=== PATIENT | male | born 1970 | race Hispanic/Latino ===

== ENCOUNTER 2021-02-14 01:48 | Emergency (ER) | payer OTHER ==
[~2021-02-14] VITALS: Ht 167.6 cm; Wt 122.5 kg
[2021-02-14] MEDS ORDERED: AMOXICILLIN/CLAVULANATE K 875 MG TAB PO STA (01:54)
[2021-02-14] MEDS ORDERED: AUGMENTIN 875-1 EACH PO (01:56)
[2021-02-14] MEDS ORDERED: IBUPROFEN600 MG PO (01:56)
[2021-02-14] MEDS ORDERED: KETOROLAC TROMETHAMINE 60 MG/2 ML VIAL IM ONE (02:00)
== END 2021-02-14 02:09 | disposition home or self-care (01) ==
LOC: ER 01:56
DX: K04.7 Periapical abscess without sinus (principal); K02.9 Dental caries, unspecified; Z98.84 Bariatric surgery status
CPT/HCPCS: 99283; J1885

== ENCOUNTER 2023-10-18 14:37 | Emergency (ER) | payer MEDICARE, OTHER ==
[~2023-10-18] VITALS: Ht 165.1 cm; Wt 81.6 kg
[~2023-10-18 14:37] MED LIST: AUGMENTIN 875-1 EACH PO; IBUPROFEN600 MG PO
[2023-10-18 14:56] VITALS: TEMP 97.5
[2023-10-18] MEDS: TETANUS/DIPHTHERIA TOX ADULT 0.5 ML SYR IM ONE (16:39)
[2023-10-18] MEDS ORDERED: LIDOCAINE HCL 1% LOCAL INJ 20 ML VIAL ONE (17:06)
[2023-10-18 17:30] VITALS: PULSE 71; RESP 16
[2023-10-18] MEDS ORDERED: CEPHALEXIN500 MG PO (17:35)
[2023-10-18] MEDS: LIDOCAINE HCL 1% LOCAL INJ 20 ML VIAL INJ ONE (17:57)
[2023-10-18 17:58] VITALS: BP 124/76; PULSE 71; RESP 16; O2SAT 96
== END 2023-10-18 17:58 | disposition home or self-care (01) ==
LOC: ER 14:54
DX: S01.01XA Laceration without foreign body of scalp, initial encounter (principal); W01.0XXA Fall on same level from slipping, tripping and stumbling without subsequent striking against object, initial encounter; Y93.01 Activity, walking, marching and hiking; Y92.89 Other specified places as the place of occurrence of the external cause; E11.9 Type 2 diabetes mellitus without complications; E78.5 Hyperlipidemia, unspecified; K21.9 Gastro-esophageal reflux disease without esophagitis; F32.A Depression, unspecified; Z98.84 Bariatric surgery status
CPT/HCPCS: 12004; 70450; 72125; 90471; 90714; 96372; 99284; J2001

== ENCOUNTER 2023-10-27 09:12 | Emergency (ER) | payer MEDICARE ==
[~2023-10-27] VITALS: Ht 165.1 cm; Wt 81.6 kg
[~2023-10-27 09:12] MED LIST changes: +CEPHALEXIN500 MG PO
[2023-10-27 09:24] VITALS: PULSE 69; RESP 16; TEMP 98; O2SAT 100
== END 2023-10-27 10:30 | disposition home or self-care (01) ==
LOC: ER 10:12
DX: Z48.02 Encounter for removal of sutures (principal)
CPT/HCPCS: 99282

== ENCOUNTER 2024-06-04 08:01 | Inpatient (IN) | payer MEDICARE ==
[~2024-06-04] VITALS: Ht 165.1 cm; Wt 88.9 kg
[2024-06-04] VITALS (28 sets, daily range): BP systolic 94–133; BP diastolic 53–79; PULSE 81–105; RESP 15–25; TEMP 97–98; O2SAT 91–99
[2024-06-04] MEDS: SODIUM CHLORIDE 0.9% 1000ML 1,000 ML IV ONE ×2 (08:27→11:59)
[2024-06-04] MEDS: ONDANSETRON HCL INJ 2MG/ML 2ML 2 MG/ML VIAL IV STA (08:27)
[2024-06-04 08:38] LABS: BASOPHILS # (AUTO) 0.1 (0.0-0.1); BASOPHILS % 0.2 % (0.0-1.0); HEMATOCRIT 33.9 % (38.2-49.6); LYMPHOCYTES # (AUTO) 0.6 (1.0-3.2); LYMPHOCYTES % 1.6 % (18.0-39.1); MEAN CORPUSCULAR HEMOGLOBIN 20.4 pg (28-32); MEAN CORPUSCULAR HGB CONC 29.5 g/dL (31-35); MONOCYTES # (AUTO) 2.3 (0.2-0.8); NEUTROPHILS # (AUTO) 32.1 (2.1-6.9); NEUTROPHILS % 83.1 % (38.7-80.0); PLATELET COUNT 216 x10e3/uL (140-360); RED BLOOD COUNT 4.91 x10e6/uL (4.3-5.7); RED CELL DISTRIBUTION WIDTH 20.2 % (11.7-14.4); WHITE BLOOD COUNT 38.63 x10e3/uL (4.8-10.8)
[2024-06-04 09:00] LABS: BAND NEUTROPHILS % (MANUAL) 3 %; LYMPHOCYTES % (MANUAL) 2 % (19-48); MONOCYTES % (MANUAL) 2 % (3.4-9.0); NEUTROPHILS % (MANUAL) 93 % (40-74)
[2024-06-04 09:01] LABS: ALBUMIN/GLOBULIN RATIO 0.7 (0.8-2.0); ANION GAP 26.2 mmol/L (8-16); ANISOCYTOSIS MODERATE; BILIRUBIN,TOTAL 1.6 mg/dL (0.2-1.2); CALCIUM 9.6 mg/dL (8.4-10.2); CREATININE, SERUM 5.39 mg/dL (0.72-1.25); PLATELET ESTIMATE ADEQUATE; PLATELET MORPHOLOGY COMMENT NORMAL; POTASSIUM 3.2 mmol/L (3.5-5.1); TOTAL PROTEIN 7.1 g/dL (6.5-8.1)
[2024-06-04 09:04] LABS: HYPOCHROMASIA SLIGHT; MICROCYTOSIS MODERATE; RBC MORPHOLOGY COMMENT ABNORMAL
[2024-06-04] MEDS: SODIUM CHLORIDE 0.9% IV SCH (09:53)
[2024-06-04] MEDS: FENTANYL CITRATE/PF 100MCG/2 ML INJ IV ONE (10:11)
[2024-06-04] MEDS ORDERED: FENTANYL CITRATE/PF 100MCG/2 ML INJ IV PRN (11:45)
[2024-06-04] MEDS ORDERED: ONDANSETRON HCL INJ 2MG/ML 2ML 2 MG/ML VIAL IV PRN (11:45)
[2024-06-04] MEDS: SODIUM CHLORIDE 0.9% 1000ML 1,000 ML IV SCH ×2 (11:57→16:53)
[2024-06-04 12:00] LABS: INR 1.45; PROTHROMBIN TIME 18.4 seconds (11.9-14.5)
[2024-06-04 12:01] LABS: PARTIAL THROMBOPLASTIN TIME 44.8 seconds (23.8-35.5)
[2024-06-04] MEDS ORDERED: ROCURONIUM BROMIDE 1 ML IV ONE (12:12)
[2024-06-04] MEDS ORDERED: ACETAMINOPHEN 1000 MG/100 ML 100 ML IV ONE (12:12)
[2024-06-04] MEDS ORDERED: SEVOFLURANE INHAL SOLN 250 ML PEN BTL ONE (12:12)
[2024-06-04] MEDS ORDERED: FENTANYL CITRATE/PF 100MCG/2 ML INJ ONE (12:12)
[2024-06-04] MEDS ORDERED: PROPOFOL IV EMULSION 10 MG/ML 20 ML VIAL ONE (12:12)
[2024-06-04] MEDS ORDERED: LIDOCAINE HCL 2% LOCAL INJ 5 ML SDV VIAL INJ ONE (12:12)
[2024-06-04] MEDS ORDERED: DEXAMETHASONE SOD PHOS INJ 4 MG/ML SDV ONE (13:36)
[2024-06-04] MEDS ORDERED: ONDANSETRON HCL INJ 2MG/ML 2ML 2 MG/ML VIAL ONE (13:36)
[2024-06-04] MEDS ORDERED: SODIUM CHLORIDE 0.9% 100 ML ONE (13:39)
[2024-06-04] MEDS ORDERED: PHENYLEPHRINE HCL 1% 10 MG/ML VIAL ONE (13:39)
[2024-06-04] MEDS ORDERED: SUGAMMADEX SODIUM 200 MG/2 ML VIAL IV ONE (13:50)
[2024-06-04] MEDS: FENTANYL CITRATE/PF 100MCG/2 ML INJ ONE (15:50)
[2024-06-04] MEDS ORDERED: FUROSEMIDE40 MG PO (17:46)
[2024-06-04] MEDS ORDERED: LANSOPRAZOLE30 MG PO (17:46)
[2024-06-04] MEDS ORDERED: MEMANTINE HCL5 MG PO (17:46)
[2024-06-04] MEDS ORDERED: METFORMIN HCL500 M1 PO (17:46)
[2024-06-04] MEDS ORDERED: FLOMAX0.4 MG PO (17:49)
[2024-06-04] MEDS ORDERED: ROSUVASTATIN CA40 MG PO (17:51)
[2024-06-04] MEDS: INSULIN REGULAR, HUMAN 100 UNIT/1 ML SQ SCH (18:00)
[2024-06-04] MEDS: METRONIDAZOLE 500MG/NS 100ML 100 ML IV SCH (18:04)
[2024-06-04] MEDS: ACETAMINOPHEN 1000 MG/100 ML IV PRN (18:05)
[2024-06-04] MEDS: LACTATED RINGER'S 500 ML IV ONE (19:53)
[2024-06-04] MEDS ORDERED: POTASSIUM CHLO10 ME1 PO (20:37)
[2024-06-04] MEDS ORDERED: SERTRALINE HCL100 MG PO (20:39)
[2024-06-04] MEDS: HYDROMORPHONE 1MG/1ML INJ IV PRN (21:55)
[2024-06-05] VITALS (39 sets, daily range): BP systolic 98–128; BP diastolic 67–77; PULSE 69–98; RESP 13–22; TEMP 96.8–97.8; O2SAT 91–100
[2024-06-05 07:02] LABS: BASOPHILS % 0.1 % (0.0-1.0); HEMATOCRIT 29.4 % (38.2-49.6); LYMPHOCYTES # (AUTO) 0.3 (1.0-3.2); LYMPHOCYTES % 1.4 % (18.0-39.1); MEAN CORPUSCULAR HGB CONC 27.2 g/dL (31-35); MEAN CORPUSCULAR VOLUME 73.5 fL (81-99); MONOCYTES # (AUTO) 0.9 (0.2-0.8); NEUTROPHILS # (AUTO) 21.1 (2.1-6.9); NEUTROPHILS % 90.2 % (38.7-80.0); PLATELET COUNT 197 x10e3/uL (140-360); RED CELL DISTRIBUTION WIDTH 20.3 % (11.7-14.4); WHITE BLOOD COUNT 23.42 x10e3/uL (4.8-10.8)
[2024-06-05 07:27] LABS: ALBUMIN 2.2 g/dL (3.5-5.0); ALBUMIN/GLOBULIN RATIO 0.6 (0.8-2.0); ANION GAP 19.9 mmol/L (8-16); BILIRUBIN,TOTAL 0.9 mg/dL (0.2-1.2); CALCIUM 7.2 mg/dL (8.4-10.2); CREATININE, SERUM 5.07 mg/dL (0.72-1.25); POTASSIUM 3.9 mmol/L (3.5-5.1); TOTAL PROTEIN 5.8 g/dL (6.5-8.1)
[2024-06-05] MEDS: SODIUM BICARBONATE 8.4% VIAL 150 ML in DEXTROSE 5% 1,000 ML IV SCH (08:01)
[2024-06-05] MEDS: MUPIROCIN 2% OINT 22 GM TUBE TOP SCH (08:43)
[2024-06-05] MEDS: TAMSULOSIN HCL 0.4 MG CAP PO SCH (08:43)
[2024-06-05] MEDS ORDERED: INSULIN REGULAR, HUMAN 100 UNIT/1 ML SQ SCH (11:30)
[2024-06-05] MEDS ORDERED: ALBUMIN 25% 12.5GM 0.25 GM/ML BTL IV SCH (11:45)
[2024-06-05 11:59] LABS: ANISOCYTOSIS MODERATE; LYMPHOCYTES % (MANUAL) 1 % (19-48); MONOCYTES % (MANUAL) 3 % (3.4-9.0); NEUTROPHILS % (MANUAL) 96 % (40-74); PLATELET ESTIMATE ADEQUATE; PLATELET MORPHOLOGY COMMENT NORMAL; RBC MORPHOLOGY COMMENT ABNORMAL
[2024-06-05 12:00] LABS: HYPOCHROMASIA MODERATE; OVALOCYTES FEW
[2024-06-05 12:02] LABS: ELLIPTOCYTE, RBC SLIGHT; MICROCYTOSIS MODERATE
[2024-06-05] MEDS: ALBUMIN 25% 12.5GM 50ML 50 ML IV SCH (12:43)
[2024-06-05] MEDS: CALCIUM GLUC 1 G/50 ML NACL 50 ML IV SCH (12:43)
[2024-06-05] MEDS: CRESTOR 10MG PO SCH (16:07)
[2024-06-05 18:28] LABS: BILIRUBIN,URINE NEGATIVE (NEGATIVE); CLARITY,URINE SL CLOUDY (CLEAR); COLOR,URINE AMBER (YELLOW); GLUCOSE, URINE NEGATIVE (NEGATIVE); KETONES,URINE NEGATIVE (NEGATIVE); LEUKOCYTE ESTERASE ,URINE SMALL (NEGATIVE); NITRITE,URINE NEGATIVE (NEGATIVE); PH,URINE 5.5 (5 - 7); PROTEIN,URINE DIPSTICK >=300 (NEGATIVE); URINE UROBILINOGEN 0.2 mg/dL (0.2 - 1)
[2024-06-05 18:45] LABS: AMORPHOUS SEDIMENT,URINE MODERATE; BACTERIA,URINE FEW /HPF
[2024-06-05 18:53] LABS: CREATININE,URINE RANDOM 54.11 mg/dL (63-166)
[2024-06-05] MEDS: HYDROMORPHONE 1MG/1ML INJ IV PRN (23:44)
[2024-06-06] VITALS (37 sets, daily range): BP systolic 91–132; BP diastolic 56–84; PULSE 73–86; RESP 12–23; TEMP 97–97.7; O2SAT 81–100
[2024-06-06 06:57] LABS: BASOPHILS % 0.1 % (0.0-1.0); HEMATOCRIT 27.3 % (38.2-49.6); HEMOGLOBIN 7.5 g/dL (14.0-18.0); LYMPHOCYTES # (AUTO) 0.3 (1.0-3.2); LYMPHOCYTES % 1.5 % (18.0-39.1); MEAN CORPUSCULAR HEMOGLOBIN 19.9 pg (28-32); MEAN CORPUSCULAR HGB CONC 27.5 g/dL (31-35); MEAN CORPUSCULAR VOLUME 72.6 fL (81-99); MONOCYTES # (AUTO) 0.9 (0.2-0.8); MONOCYTES % 5.1 % (4.4-11.3); NEUTROPHILS # (AUTO) 15.7 (2.1-6.9); PLATELET COUNT 144 x10e3/uL (140-360); RED BLOOD COUNT 3.76 x10e6/uL (4.3-5.7); RED CELL DISTRIBUTION WIDTH 20.3 % (11.7-14.4); WHITE BLOOD COUNT 17.08 x10e3/uL (4.8-10.8)
[2024-06-06 07:32] LABS: ALBUMIN 2.7 g/dL (3.5-5.0); ALBUMIN/GLOBULIN RATIO 0.8 (0.8-2.0); ANION GAP 21.8 mmol/L (8-16); BILIRUBIN,TOTAL 0.8 mg/dL (0.2-1.2); CALCIUM 7.2 mg/dL (8.4-10.2); CREATININE, SERUM 5.79 mg/dL (0.72-1.25); POTASSIUM 3.8 mmol/L (3.5-5.1); TOTAL PROTEIN 6.1 g/dL (6.5-8.1)
[2024-06-06 07:43] LABS: MAGNESIUM 2.2 MG/DL (1.3-2.1); PHOSPHORUS 6.1 MG/DL (2.3-4.7)
[2024-06-06] MEDS: FUROSEMIDE INJ 10 MG/ML 4 ML VIAL IV ONE (08:03)
[2024-06-06] MEDS: SERTRALINE HCL 100 MG TAB PO SCH (08:03)
[2024-06-06 09:40] LABS: LYMPHOCYTES % (MANUAL) 2 % (19-48); MONOCYTES % (MANUAL) 5 % (3.4-9.0); NEUTROPHILS % (MANUAL) 93 % (40-74)
[2024-06-06 09:41] LABS: PLATELET ESTIMATE ADEQUATE; PLATELET MORPHOLOGY COMMENT NORMAL
[2024-06-06 09:42] LABS: HYPOCHROMASIA SLIGHT; POIKILOCYTOSIS SLIGHT; RBC MORPHOLOGY COMMENT NORMAL
[2024-06-06 09:43] LABS: ELLIPTOCYTE, RBC SLIGHT
[2024-06-06] MEDS ORDERED: ACETAMINOPHEN 1000 MG/100 ML IV PRN (09:45)
[2024-06-06] MEDS: SODIUM CHLORIDE 0.9% 1000ML 1,000 ML ONE (17:12)
[2024-06-06] MEDS: MANNITOL 25% 12.5GM/50ML 100 ML ONE (17:12)
[2024-06-06] MEDS ORDERED: HEPARIN SOD (PORCINE) 1000 UNIT/ML SDV IV PRN (17:45)
[2024-06-06] MEDS ORDERED: MANNITOL 25% 12.5GM/50 ML VIAL IV PRN (17:45)
[2024-06-06] MEDS ORDERED: SODIUM CHLORIDE 0.9% 1000ML 2,000 ML IV PRN (17:45)
[2024-06-06] MEDS: NOREPINEPHRINE 8 MG/D5W 250 ML 250 ML IV SCH (18:15)
[2024-06-07] VITALS (23 sets, daily range): BP systolic 92–141; BP diastolic 59–112; PULSE 80–116; RESP 13–25; TEMP 98–98.1; O2SAT 82–100
[2024-06-07] MEDS: DEXTROSE 50% SYRINGE 50 ML IV PRN (05:18)
[2024-06-07 06:36] LABS: BASOPHILS % 0.1 % (0.0-1.0); LYMPHOCYTES # (AUTO) 0.2 (1.0-3.2); LYMPHOCYTES % 1.1 % (18.0-39.1); MEAN CORPUSCULAR HEMOGLOBIN 20.1 pg (28-32); MEAN CORPUSCULAR HGB CONC 27.3 g/dL (31-35); MEAN CORPUSCULAR VOLUME 73.8 fL (81-99); MONOCYTES # (AUTO) 0.7 (0.2-0.8); MONOCYTES % 5.1 % (4.4-11.3); NEUTROPHILS # (AUTO) 13.5 (2.1-6.9); NEUTROPHILS % 93.1 % (38.7-80.0); PLATELET COUNT 126 x10e3/uL (140-360); RED BLOOD COUNT 3.28 x10e6/uL (4.3-5.7); RED CELL DISTRIBUTION WIDTH 20.7 % (11.7-14.4); WHITE BLOOD COUNT 14.45 x10e3/uL (4.8-10.8)
[2024-06-07 06:38] LABS: HEMATOCRIT 24.2 % (38.2-49.6); HEMOGLOBIN 6.6 g/dL (14.0-18.0)
[2024-06-07 06:57] LABS: ALBUMIN 2.7 g/dL (3.5-5.0); ALBUMIN/GLOBULIN RATIO 0.8 (0.8-2.0); ANION GAP 18.3 mmol/L (8-16); BILIRUBIN,TOTAL 0.8 mg/dL (0.2-1.2); CALCIUM 7.5 mg/dL (8.4-10.2); CREATININE, SERUM 4.79 mg/dL (0.72-1.25); TOTAL PROTEIN 6.1 g/dL (6.5-8.1)
[2024-06-07 07:08] LABS: MAGNESIUM 1.9 MG/DL (1.3-2.1); PHOSPHORUS 4.8 MG/DL (2.3-4.7)
[2024-06-07 07:13] LABS: POTASSIUM 3.3 mmol/L (3.5-5.1)
[2024-06-07] MEDS: SODIUM CHLORIDE 0.9% 250ML 250 ML IV ONE (08:22)
[2024-06-07] MEDS: ACETAMINOPHEN 1000 MG/100 ML IV PRN (08:59)
[2024-06-07] MEDS: POTASSIUM CHLORIDE 10MEQ/100ML 100 ML IV SCH (12:52)
[2024-06-07] MEDS: ACETAMINOPHEN/CODEINE 300MG - 30MG TAB PO PRN (13:30)
[2024-06-07] MEDS ORDERED: ALBUMIN 25% 12.5GM 0.25 GM/ML BTL IV PRN (15:45)
[2024-06-07] MEDS ORDERED: HEPARIN SOD (PORCINE) 1000 UNIT/ML SDV IV PRN (15:45)
[2024-06-07] MEDS: AMIODARONE HCL 150 MG/100 ML BAG IV ONE (17:18)
[2024-06-07] MEDS: AMIODARONE 900MG 500 ML IV SCH (17:47)
[2024-06-07] MEDS: ALBUMIN 25% 12.5GM 50ML 0 ML IV ONE (19:13)
[2024-06-07] MEDS: ONDANSETRON HCL INJ 2MG/ML 2ML 2 MG/ML VIAL IV PRN (20:47)
[2024-06-08] VITALS (54 sets, daily range): BP systolic 109–158; BP diastolic 69–112; PULSE 59–116; RESP 16–29; TEMP 97.8–98.2; O2SAT 79–100
[2024-06-08 05:44] LABS: BASOPHILS % 0.1 % (0.0-1.0); EOSINOPHILS % 0.1 % (0.0-6.0); HEMOGLOBIN 7.3 g/dL (14.0-18.0); LYMPHOCYTES # (AUTO) 0.4 (1.0-3.2); LYMPHOCYTES % 3.1 % (18.0-39.1); MEAN CORPUSCULAR HGB CONC 28.1 g/dL (31-35); MEAN CORPUSCULAR VOLUME 74.7 fL (81-99); MONOCYTES # (AUTO) 0.8 (0.2-0.8); MONOCYTES % 6.7 % (4.4-11.3); NEUTROPHILS # (AUTO) 10.5 (2.1-6.9); NEUTROPHILS % 88.5 % (38.7-80.0); RED BLOOD COUNT 3.48 x10e6/uL (4.3-5.7); RED CELL DISTRIBUTION WIDTH 20.6 % (11.7-14.4); WHITE BLOOD COUNT 11.86 x10e3/uL (4.8-10.8)
[2024-06-08 05:46] LABS: PLATELET COUNT 123 x10e3/uL (140-360)
[2024-06-08 06:12] LABS: ALBUMIN 2.6 g/dL (3.5-5.0); ALBUMIN/GLOBULIN RATIO 0.8 (0.8-2.0); ANION GAP 17.6 mmol/L (8-16); BILIRUBIN,TOTAL 1.4 mg/dL (0.2-1.2); CALCIUM 8.3 mg/dL (8.4-10.2); CREATININE, SERUM 3.69 mg/dL (0.72-1.25); POTASSIUM 3.6 mmol/L (3.5-5.1); TOTAL PROTEIN 5.7 g/dL (6.5-8.1)
[2024-06-08] MEDS: EPOETIN ALFA-EPBX 10,000 UNIT/ML VIAL SC SCH (11:46)
[2024-06-08 18:41] LABS: HEPATITIS B CORE AB TOTAL Negative; HEPATITIS B SURFACE AB QUANT <3.5; HEPATITIS B SURFACE AG (P) Negative
[2024-06-09] VITALS (14 sets, daily range): BP systolic 91–155; BP diastolic 67–101; PULSE 66–82; RESP 18–25; TEMP 97.2–98; O2SAT 92–100
[2024-06-09 05:59] LABS: WHITE BLOOD COUNT 11.59 x10e3/uL (4.8-10.8)
[2024-06-09 06:00] LABS: BASOPHILS % 0.1 % (0.0-1.0); EOSINOPHILS # (AUTO) 0.1 (0.0-0.4); EOSINOPHILS % 0.8 % (0.0-6.0); HEMATOCRIT 27.7 % (38.2-49.6); LYMPHOCYTES # (AUTO) 0.3 (1.0-3.2); LYMPHOCYTES % 2.9 % (18.0-39.1); MEAN CORPUSCULAR HEMOGLOBIN 20.9 pg (28-32); MEAN CORPUSCULAR HGB CONC 28.9 g/dL (31-35); MEAN CORPUSCULAR VOLUME 72.5 fL (81-99); MONOCYTES # (AUTO) 0.8 (0.2-0.8); MONOCYTES % 7.2 % (4.4-11.3); NEUTROPHILS % 86.4 % (38.7-80.0); PLATELET COUNT 126 x10e3/uL (140-360); RED BLOOD COUNT 3.82 x10e6/uL (4.3-5.7)
[2024-06-09 06:08] LABS: ANION GAP 20.6 mmol/L (8-16); CREATININE, SERUM 2.95 mg/dL (0.72-1.25); POTASSIUM 3.6 mmol/L (3.5-5.1)
[2024-06-09 06:09] LABS: ALBUMIN 2.6 g/dL (3.5-5.0); ALBUMIN/GLOBULIN RATIO 0.7 (0.8-2.0); BILIRUBIN,TOTAL 0.8 mg/dL (0.2-1.2); CALCIUM 8.3 mg/dL (8.4-10.2); TOTAL PROTEIN 6.3 g/dL (6.5-8.1)
[2024-06-10] VITALS (14 sets, daily range): BP systolic 99–127; BP diastolic 55–82; PULSE 57–75; RESP 14–20; TEMP 96–98.2; O2SAT 97–100
[2024-06-11] VITALS (11 sets, daily range): BP systolic 93–130; BP diastolic 60–78; PULSE 54–75; RESP 16–19; TEMP 97.3–98.4; O2SAT 96–100
[2024-06-11 08:13] LABS: BASOPHILS % 0.1 % (0.0-1.0); EOSINOPHILS # (AUTO) 0.3 (0.0-0.4); EOSINOPHILS % 2.2 % (0.0-6.0); HEMATOCRIT 26.2 % (38.2-49.6); HEMOGLOBIN 7.4 g/dL (14.0-18.0); LYMPHOCYTES # (AUTO) 0.4 (1.0-3.2); LYMPHOCYTES % 3.3 % (18.0-39.1); MEAN CORPUSCULAR HEMOGLOBIN 20.8 pg (28-32); MEAN CORPUSCULAR HGB CONC 28.2 g/dL (31-35); MEAN CORPUSCULAR VOLUME 73.8 fL (81-99); MONOCYTES # (AUTO) 0.9 (0.2-0.8); MONOCYTES % 7.7 % (4.4-11.3); NEUTROPHILS # (AUTO) 9.5 (2.1-6.9); NEUTROPHILS % 85.5 % (38.7-80.0); PLATELET COUNT 138 x10e3/uL (140-360); RED BLOOD COUNT 3.55 x10e6/uL (4.3-5.7); RED CELL DISTRIBUTION WIDTH 21.5 % (11.7-14.4); WHITE BLOOD COUNT 11.13 x10e3/uL (4.8-10.8)
[2024-06-11 08:39] LABS: ANION GAP 18.5 mmol/L (8-16); CALCIUM 7.9 mg/dL (8.4-10.2); CREATININE, SERUM 5.23 mg/dL (0.72-1.25); POTASSIUM 3.5 mmol/L (3.5-5.1)
[2024-06-11] MEDS: ALBUTEROL/IPRATROPIUM 3 ML NEB NEB PRN (12:22)
[2024-06-11] MEDS: MIDODRINE HCL 5 MG TABLET PO SCH (12:46)
[2024-06-12] VITALS (10 sets, daily range): BP systolic 99–146; BP diastolic 58–78; PULSE 56–87; RESP 16–22; TEMP 96.9–98.6; O2SAT 91–100
[2024-06-12 06:18] LABS: ANION GAP 19.7 mmol/L (8-16); CALCIUM 8.7 mg/dL (8.4-10.2); CREATININE, SERUM 3.1 mg/dL (0.72-1.25); POTASSIUM 3.7 mmol/L (3.5-5.1)
[2024-06-12] MEDS ORDERED: LIDOCAINE HCL 1% 30ML-PF VIAL ONE (13:12)
[2024-06-12] MEDS ORDERED: SODIUM CHLORIDE 0.9% 250ML 250 ML ONE (13:12)
[2024-06-12] MEDS ORDERED: FENTANYL CITRATE/PF 100MCG/2 ML INJ ONE (14:21)
[2024-06-12] MEDS ORDERED: MIDAZOLAM HCL 2 MG/2 ML VIAL ONE (14:21)
[2024-06-12] MEDS ORDERED: HEPARIN SOD (PORCINE) 1000 UNIT/ML SDV ONE (15:05)
[2024-06-12] MEDS: CRESTOR 10MG PO SCH (21:00)
[2024-06-13] VITALS (11 sets, daily range): BP systolic 111–128; BP diastolic 49–73; PULSE 57–62; RESP 16–22; TEMP 97.3–98.5; O2SAT 95–100
[2024-06-14] VITALS: BP 109/62; PULSE 62; RESP 18; TEMP 98.1; O2SAT 100
[2024-06-14 00:05] VITALS: PULSE 62; RESP 18; O2SAT 100
[2024-06-14 04:00] VITALS: BP 117/62; PULSE 62; RESP 18; TEMP 98.6; O2SAT 100
[2024-06-14 06:19] VITALS: PULSE 74; RESP 20; O2SAT 96
[2024-06-14] MEDS ORDERED: DEXTROSE 50% SYRINGE 50 ML IV ONE (12:48)
[2024-06-14] MEDS ORDERED: SODIUM CHLORIDE FLUSH 10 ML SYR ONE (12:48)
[2024-06-14] MEDS ORDERED: CALCIUM GLUCONATE 10% INJ 0.465 MEQ/ML VIAL ONE (12:48)
[2024-06-14] MEDS ORDERED: SODIUM BICARBONATE 8.4% INJ 50 ML SYR ONE (12:48)
[2024-06-14] MEDS ORDERED: EPINEPHRINE HCL SYRINGE ONE (12:48)
== END 2024-06-14 15:19 | disposition expired | DRG 853 ==
LOC: ER 08:05 → ERHOLD 11:47 → ICU 16:19 → MED/SURG2 06-10 16:14 → IMCU 06-14 08:29
PROVIDERS: ADMIT Internal Medicine; ATTEND Internal Medicine
PROC: 3E0333Z Introduction of Anti-inflammatory into Peripheral Vein, Percutaneous Approach (ICD-10-PCS; 2024-06-04)
PROC: 0FT44ZZ Resection of Gallbladder, Percutaneous Endoscopic Approach (ICD-10-PCS; principal; 2024-06-04 13:36)
PROC: 0T9B70Z Drainage of Bladder with Drainage Device, Via Natural or Artificial Opening (ICD-10-PCS; 2024-06-05)
PROC: 5A1D70Z Performance of Urinary Filtration, Intermittent, Less than 6 Hours Per Day (ICD-10-PCS; 2024-06-06)
PROC: 02HV33Z Insertion of Infusion Device into Superior Vena Cava, Percutaneous Approach (ICD-10-PCS; 2024-06-06)
PROC: 30233N1 Transfusion of Nonautologous Red Blood Cells into Peripheral Vein, Percutaneous Approach (ICD-10-PCS; 2024-06-07)
PROC: 02H633Z Insertion of Infusion Device into Right Atrium, Percutaneous Approach (ICD-10-PCS; 2024-06-12)
PROC: 0JH63XZ Insertion of Tunneled Vascular Access Device into Chest Subcutaneous Tissue and Fascia, Percutaneous Approach (ICD-10-PCS; 2024-06-12)
PROC: 5A2204Z Restoration of Cardiac Rhythm, Single (ICD-10-PCS; 2024-06-14)
DX: A41.9 Sepsis, unspecified organism (principal); G93.41 Metabolic encephalopathy; J18.9 Pneumonia, unspecified organism; J96.01 Acute respiratory failure with hypoxia; R65.21 Severe sepsis with septic shock; N17.0 Acute kidney failure with tubular necrosis; E87.20 Acidosis, unspecified; K80.00 Calculus of gallbladder with acute cholecystitis without obstruction; R17 Unspecified jaundice; E87.1 Hypo-osmolality and hyponatremia; I13.11 Hypertensive heart and chronic kidney disease without heart failure, with stage 5 chronic kidney disease, or end stage renal disease; E11.22 Type 2 diabetes mellitus with diabetic chronic kidney disease; N18.5 Chronic kidney disease, stage 5; I46.9 Cardiac arrest, cause unspecified; R34 Anuria and oliguria; K82.A1 Gangrene of gallbladder in cholecystitis; E83.51 Hypocalcemia; E78.5 Hyperlipidemia, unspecified; D63.1 Anemia in chronic kidney disease; D50.9 Iron deficiency anemia, unspecified; E87.70 Fluid overload, unspecified; R74.01 Elevation of levels of liver transaminase levels; E87.6 Hypokalemia; R00.1 Bradycardia, unspecified; T83.031A Leakage of indwelling urethral catheter, initial encounter; Y84.6 Urinary catheterization as the cause of abnormal reaction of the patient, or of later complication, without mention of misadventure at the time of the procedure; E66.9 Obesity, unspecified; Z68.32 Body mass index [BMI] 32.0-32.9, adult; K21.9 Gastro-esophageal reflux disease without esophagitis; N40.0 Benign prostatic hyperplasia without lower urinary tract symptoms; F32.A Depression, unspecified; Z98.84 Bariatric surgery status; Z90.49 Acquired absence of other specified parts of digestive tract
CPT/HCPCS: 36415; 36558; 70450; 71045; 74176; 74470; 76705; 76770; 76937; 77001; 80048; 80053; 81001; 82570; 82948; 83605; 83690; 83735; 84100; 84300; 85025; 85610; 85730; 86704; 86706; 86850; 86900; 86920; 87040; 87340; 88304; 90962; 92950; 93005; 94799; 99152; 99153; 99284; C1766; C1769; C1892; J0171; J0612; J0690; J1100; J1171; J1644; J1938; J2003; J2150; J2250; J2371; J2405; J2470; J2543; J3480; J7030; J7050; J7070; J7120; J7799; P9016